=== PATIENT | female | born 2000 | race Caucasian/White ===

== ENCOUNTER 2020-09-27 13:03 | Emergency (ER) | payer OTHER ==
[2020-09-27] MEDS ORDERED: TORAdol 30 mg Injection IM ONE (13:19)
[2020-09-27 13:21] VITALS: BP 139/92; PULSE 89; O2SAT 99
[2020-09-27] MEDS ORDERED: TORAdol 30 mg Injection ONE (13:24)
--- NOTE | 2020-09-27 13:31 | ERPHSYRPT ---
- History of Present Illness Time Seen by Provider: 09/27/20 13:06 Source: patient Exam Limitations: no limitations Patient Subjective Stated Complaint: PT states "I do not know what has happend but my back really hurts." Triage Nursing Assessment: PT presented alert and oriented X3, skin pwd Pt ambulates with an uprigth limpy gait, able to speak in clear full sentences. pt grunting unable to sit comfortably." Physician History: Patient is here with back pain. Nontraumatic. No falls or other known injuries. She states that she has tried some home Tylenol. No ibuprofen or hot pack, heating pack. She has not seen her PCP. She did not attempt to call her PCP. Patient has no red flag symptoms for back pain today: No Loss of control of the bowel or bladder. No weakness or numbness in a leg or arm. No foot drop, disturbed gait. No high fever, no IV drug use. No saddle anaesthesia (numbness of the anus, perineum or genitals). No trauma or h/o cancer Timing/Duration: today Severity: mild Modifying Factors: Improves With: medication, movement Associated Symptoms: denies symptoms Allergies/Adverse Reactions: peach Allergy (Intermediate, Verified 09/27/20 13:21) Hives Home Medications: Iron,Carb/Vit C/Vit B12/Folic [Iron 100 Plus Tablet] 1 each PO DAILY 09/27/20 [History] Hx Tetanus, Diphtheria Vaccination/Date Given: No Hx Influenza Vaccination/Date Given: No Hx Pneumococcal Vaccination/Date Given: No Immunizations Up to Date: Yes Travel Risk - International Travel Have you traveled outside of the country in past 3 weeks: No - Coronavirus Screening Are you exhibiting any of the following symptoms?: No Close contact with a COVID-19 positive Pt in past 14-21 Days: No - Review of Systems Constitutional: No Fever, No Chills Eyes: No Symptoms Ears, Nose, & Throat: No Symptoms Respiratory: No Cough, No Dyspnea Cardiac: No Chest Pain, No Edema, No Syncope Abdominal/Gastrointestinal: No Abdominal Pain, No Nausea, No Vomiting, No Diarrhea Genitourinary Symptoms: No Dysuria Musculoskeletal: Back Pain, No Neck Pain Skin: No Rash Neurological: No Dizziness, No Focal Weakness, No Sensory Changes Psychological: No Symptoms Endocrine: No Symptoms All Other Systems: Reviewed and Negative - Past Medical History Pertinent Past Medical History: Yes Other Medical History: anemia - Past Surgical History Past Surgical History: No - Social History Smoking Status: Current every day smoker How long have you smoked: years Exposure to second hand smoke: Yes Drug Use: none Patient Lives Alone: No - Female History Hx Last Menstrual Period: unknown Hx Now: No - Nursing Vital Signs Nursing Vital Signs: Initial Vital Signs Temperature 97.8 F 09/27/20 13:09 Pulse Rate 89 09/27/20 13:09 Respiratory Rate 20 09/27/20 13:09 Blood Pressure 139/92 09/27/20 13:09 O2 Sat by Pulse Oximetry 99 09/27/20 13:09 Pain Scale Pain Intensity [Lower Back] 8 Pain Intensity 8 - Physical Exam General Appearance: no apparent distress, alert Eye Exam: PERRL/EOMI, eyes nml inspection Ears, Nose, Throat Exam: normal ENT inspection, TMs normal, pharynx normal, moist mucous membranes Neck Exam: normal inspection, non-tender, supple, full range of motion Respiratory Exam: normal breath sounds, lungs clear, No respiratory distress Cardiovascular Exam: regular rate/rhythm, normal heart sounds, normal peripheral pulses Gastrointestinal/Abdomen Exam: soft, normal bowel sounds, No tenderness, No mass Back Exam: normal inspection, normal range of motion, No CVA tenderness, No vertebral tenderness Extremity Exam: normal inspection, normal range of motion, pelvis stable Neurologic Exam: alert, oriented x 3, cooperative, normal mood/affect, nml cerebellar function, nml station & gait, sensation nml, No motor deficits Skin Exam: normal color, warm, dry, No rash Lymphatic Exam: No adenopathy SpO2 Interpretation: normal SpO2: 99 Comments: 09/27/20 13:30 No trismus, able to fully extend neck, normal range of motion of neck without pain. Uvula is midline, no swelling of the mouth, noraml oropharynx. No exudate, no signs of meningitis, no floor of mouth swelling, no hot potato voice on exam. No buccal swelling, no gum bleeding, no signs of tooth abscess/infection. No obvious deformity, sensation intact, 2+ capillary refill, 2 point tactile discrimination intact. 5 out of 5 strength. Full range of motion without pain. Compartments are soft, nontender. Overlying skin shows no tenting, bruising, ecchymosis. Motor: There is no pronator drift of out-stretched arms. Muscle bulk and tone are normal. Strength is full bilaterally. Reflexes: Reflexes are 2+ and symmetric at the biceps, triceps, knees, and a nkles. Plantar responses are flexor. Sensory: Light touch sense are intact in bilateral upper and lower extremities. There is no sign of neglect. Coordination: Rapid alternating movements are intact. There is no dysmetria on [id number] and [id number]. There are no abnormal or extraneous movements. Romberg is absent. Gait/Stance: Posture is normal. Gait is steady with normal steps, base, arm swing, and turning. Heel and toe walking are normal. Tandem gait is normal. - Course Nursing assessment & vital signs reviewed: Yes Ordered Tests: Active Orders 24 hr Category Date Time Status LUMBAR LIMITED (2 OR 3 VIEWS) Stat Exams 09/27/20 13:32 Completed HCG,QUALITATIVE URINE Stat Lab 09/27/20 13:19 Ordered UA W/RFX UR CULTURE Stat Lab 09/27/20 13:19 Ordered Medication Summary Discontinued Medications Generic Name Dose Route Start Last Admin Trade Name Daniel PRN Reason Stop Dose Admin Ketorolac Tromethamine 30 mg 09/27/20 13:19 09/27/20 13:26 Toradol 30 Mg Injection IM 09/27/20 13:20 Not Given STAT ONE Ketorolac Tromethamine Confirm 09/27/20 13:24 Toradol 30 Mg Injection Administered 09/27/20 13:25 Dose 30 mg .ROUTE .STK-MED ONE - Progress Progress: improved Progress Note: 09/27/20 13:31 Patient here with back pain. No red flag symptoms for back pain. Will obtain a UA, urine , IM shot of Toradol, x-ray of the low back. 09/27/20 13:55 X-ray showed no fractures. Neurological reexam remained normal. Patient declines staying to get her urine tested for or UA. Plan of care was discussed with patient and all questions answered. The patient is agreeable to be discharged home and both verbal and printed discharge instructions were provided.The patient agreed to seek outpatient follow up as discussed. The patient was given strict instructions to return to the emergency department for worsening symptoms or any other emergent concerns. The patient verbalized understanding. Counseled pt/family regarding: diagnosis, need for follow-up, rad results - Departure Departure Disposition: Home Clinical Impression: Low back pain Condition: Stable Critical Care Time: No Referrals: FERNANDO KATHLEEN [ACTIVE STAFF] - Instructions: Low Back Pain (DC)
--- NOTE | 2020-09-27 13:46 | XRAY ---
Indication: Low back pain. No known injury. Comparison: None 3 view lumbar spine demonstrates 5 lumbar segments in normal alignment with vertebral body heights/disc spaces maintained. No bony, articular, or soft tissue abnormalities.
== END 2020-09-27 13:54 | disposition home or self-care (01) ==
LOC: ED 13:03
DX: M54.5 Low back pain (principal)
CPT/HCPCS: 72100; 99284; J1885

== ENCOUNTER 2021-02-08 17:14 | Emergency (ER) | payer OTHER ==
--- NOTE | 2021-02-08 17:19 | ERPHSYRPT ---
- History of Present Illness Time Seen by Provider: 02/08/21 17:19 Source: patient Exam Limitations: no limitations Physician History: This is an obese 20-year-old white female who presents with 1 day history of sore throat mild cough and myalgias arthralgias. She has had no fever. She has had a few episodes of loose stool but no vomiting. Her significant other has somewhat similar symptoms. She has no chest pain. She has no shortness of breath. She has no abdominal pain. Timing/Duration: yesterday Severity: mild Associated Symptoms: cough, No nausea, No vomiting, No abdominal pain, No shortness of breath, No chills, No chest pain Allergies/Adverse Reactions: peach Allergy (Intermediate, Verified 02/08/21 17:28) Hives Home Medications: No Reportable Medications [No Reported Medications] 02/08/21 [History] Hx Tetanus, Diphtheria Vaccination/Date Given: No Hx Influenza Vaccination/Date Given: No Hx Pneumococcal Vaccination/Date Given: No Travel Risk - International Travel Have you traveled outside of the country in past 3 weeks: No - Coronavirus Screening Symptoms: Cough: New Onset Close contact with a COVID-19 positive Pt in past 14-21 Days: No - Vaccine Status Have you recieved a Covid-19 vaccination: No - Review of Systems Constitutional: No Symptoms Eyes: No Symptoms Ears, Nose, & Throat: No Symptoms Respiratory: Cough (Mild), No Dyspnea Cardiac: No Symptoms, No Chest Pain Abdominal/Gastrointestinal: Diarrhea (A few episodes of loose stools), No Abdominal Pain, No Nausea, No Vomiting Genitourinary Symptoms: No Symptoms Musculoskeletal: Arthralgias, Myalgias Skin: No Symptoms Neurological: No Symptoms Psychological: No Symptoms Endocrine: No Symptoms Hematologic/Lymphatic: No Symptoms Immunological/Allergic: No Symptoms All Other Systems: Reviewed and Negative - Past Medical History Pertinent Past Medical History: Yes Neurological History: No Pertinent History ENT History: No Pertinent History Cardiac History: No Pertinent History Respiratory History: No Pertinent History Endocrine Medical History: No Pertinent History Musculoskeletal History: No Pertinent History GI Medical History: No Pertinent History History: No Pertinent History Psycho-Social History: No Pertinent History Female Reproductive Disorders: No Pertinent History Other Medical History: anemia - Past Surgical History Past Surgical History: No Neuro Surgical History: No Pertinent History Cardiac: No Pertinent History Respiratory: No Pertinent History Gastrointestinal: No Pertinent History Genitourinary: No Pertinent History Musculoskeletal: No Pertinent History Female Surgical History: No Pertinent History - Social History Smoking Status: Current every day smoker How long have you smoked: years Exposure to second hand smoke: Yes Drug Use: none Patient Lives Alone: No - Nursing Vital Signs Nursing Vital Signs: Initial Vital Signs Temperature 98.2 F 02/08/21 17:29 Pulse Rate 69 02/08/21 17:29 Respiratory Rate 18 02/08/21 17:29 Blood Pressure 158/90 02/08/21 17:29 O2 Sat by Pulse Oximetry 98 02/08/21 17:29 Pain Scale Pain Intensity 5 - Physical Exam General Appearance: no apparent distress, alert, anxiety, obese Eye Exam: PERRL/EOMI, eyes nml inspection Ears, Nose, Throat Exam: normal ENT inspection, moist mucous membranes Neck Exam: normal inspection, non-tender, supple, full range of motion Respiratory Exam: normal breath sounds, lungs clear, airway intact, No chest tenderness, No respiratory distress Cardiovascular Exam: regular rate/rhythm, normal heart sounds, normal peripheral pulses Gastrointestinal/Abdomen Exam: soft, normal bowel sounds, No tenderness Pelvic Exam: not done Rectal Exam: not done Back Exam: normal inspection, normal range of motion, No CVA tenderness, No vertebral tenderness Extremity Exam: normal inspection, normal range of motion, pelvis stable Neurologic Exam: alert, oriented x 3, cooperative, floor winder II-XII nml as tested, normal mood/affect, nml cerebellar function, nml station & gait, sensation nml Skin Exam: normal color, warm, dry Lymphatic Exam: No adenopathy SpO2 Interpretation: normal O2 Delivery: Room Air - Course Nursing assessment & vital signs reviewed: Yes Ordered Tests: Active Orders 24 hr Category Date Time Status INFLUENZA A+B WESTLEY Stat Lab 02/08/21 18:01 Completed Lab/Rad Data: Laboratory Results 02/08/21 02/08/21 Range/Units 18:01 18:01 Influenza Type A Ag NEGATIVE (NEGATIVE) Influenza Type B Ag NEGATIVE (NEGATIVE) Group A Strep Antibody NOT DETECTED (NEGATIVE) - Departure Departure Disposition: Home Clinical Impression: Flu-like symptoms Condition: Stable Critical Care Time: No Referrals: DOCTOR,NO FAMILY [Primary Care Provider] - Additional Instructions: Drink plenty of fluids. Use Tylenol and ibuprofen for pain and fever control. Quarantine yourself until your COVID-19 test result return. Forms: Work/School Release Form
[2021-02-08 17:43] VITALS: O2SAT 98
[2021-02-08 18:30] LABS: INFLUENZA A NEGATIVE (NEGATIVE); INFLUENZA B NEGATIVE (NEGATIVE)
[2021-02-08 18:32] VITALS: BP 159/104; PULSE 74
== END 2021-02-08 19:08 | disposition home or self-care (01) ==
LOC: ED 17:14
DX: J11.1 Influenza due to unidentified influenza virus with other respiratory manifestations (principal)
CPT/HCPCS: 87400; 87651; 99283; U0003

== ENCOUNTER 2021-03-08 16:23 | Emergency (ER) | payer OTHER ==
[2021-03-08 16:38] VITALS: BP 151/79; PULSE 86; O2SAT 97
--- NOTE | 2021-03-08 16:42 | ERPHSYRPT ---
- History of Present Illness Time Seen by Provider: 03/08/21 16:40 Source: patient Exam Limitations: no limitations Patient Subjective Stated Complaint: pt here for pain to left hand and wrist, pt states she hurt it at work night. Triage Nursing Assessment: pt alert, resp easy, skin w/d/p. face mask in place, has swelling to left hand Physician History: pt here for pain to left hand and wrist, pt states she hurt it at work night. denies any other injury. C/o swelling of hand. Occurred: last week Method of Injury: twisted Quality: constant Severity of Pain-Max: moderate Severity of Pain-Current: moderate Extremities Pain Location: hand: left Modifying Factors: Improves With: cold therapy Associated Symptoms: none Allergies/Adverse Reactions: peach Allergy (Intermediate, Verified 03/08/21 16:38) Hives Home Medications: Iron,Carb/Vit C/Vit B12/Folic [Iron 100 Plus Tablet] 1 ea DAILY 03/08/21 [History] Hx Tetanus, Diphtheria Vaccination/Date Given: No Hx Influenza Vaccination/Date Given: No Hx Pneumococcal Vaccination/Date Given: No Immunizations Up to Date: Yes Travel Risk - International Travel Have you traveled outside of the country in past 3 weeks: No - Coronavirus Screening Are you exhibiting any of the following symptoms?: No Close contact with a COVID-19 positive Pt in past 14-21 Days: No - Vaccine Status Have you recieved a Covid-19 vaccination: No - Review of Systems Constitutional: No Symptoms Eyes: No Symptoms Ears, Nose, & Throat: No Symptoms Respiratory: No Symptoms Cardiac: No Symptoms Abdominal/Gastrointestinal: No Symptoms Genitourinary Symptoms: No Symptoms Musculoskeletal: Joint Redness, Joint Pain, Joint Swelling (left hand), No Deformity - Past Medical History Pertinent Past Medical History: Yes Neurological History: No Pertinent History ENT History: No Pertinent History Cardiac History: No Pertinent History Respiratory History: No Pertinent History Endocrine Medical History: No Pertinent History Musculoskeletal History: No Pertinent History GI Medical History: No Pertinent History History: No Pertinent History Psycho-Social History: No Pertinent History Female Reproductive Disorders: No Pertinent History Other Medical History: anemia - Past Surgical History Past Surgical History: No Neuro Surgical History: No Pertinent History Cardiac: No Pertinent History Respiratory: No Pertinent History Gastrointestinal: No Pertinent History Genitourinary: No Pertinent History Musculoskeletal: No Pertinent History Female Surgical History: No Pertinent History - Social History Smoking Status: Current every day smoker How long have you smoked: years Exposure to second hand smoke: Yes Drug Use: none Patient Lives Alone: No - Female History Hx Last Menstrual Period: january Hx Now: No - Nursing Vital Signs Nursing Vital Signs: Initial Vital Signs Temperature 97.2 F 03/08/21 16:32 Pulse Rate 86 03/08/21 16:32 Respiratory Rate 18 03/08/21 16:32 Blood Pressure 151/79 03/08/21 16:32 O2 Sat by Pulse Oximetry 97 03/08/21 16:32 Pain Scale Pain Intensity 8 - Physical Exam General Appearance: no apparent distress Eyes, Ears, Nose, Throat Exam: normal ENT inspection Neck Exam: normal inspection Back Exam: normal inspection Shoulder Exam: normal inspection Elbow/Forearm Exam: normal inspection Wrist Exam: normal inspection Hand Exam: limited ROM, soft tissue tenderness, stiffness, swelling, No deformity SpO2: 97 - Radiology Exams Hand X-ray Interpretation: Reviewed by me, Negative, No Fracture Ordered Tests: Active Orders 24 hr Category Date Time Status HAND (MINIMUM 3 VIEWS) Stat Exams 03/08/21 16:40 Ordered - Progress Progress: improved, pain not gone completely Counseled pt/family regarding: diagnosis, need for follow-up, rad results - Departure Departure Disposition: Home Clinical Impression: Contusion of hand excluding finger Condition: Stable Critical Care Time: No Referrals: DOCTOR,NO FAMILY [Primary Care Provider] - Follow Up with PCP/3 days Instructions: Active Range of Motion Exercises, Arms and Hands, Passive Range of Motion Exercises, Arms and Hands Additional Instructions: SPRAINS/STRAINS/CONTUSIONS 1. Rest the affected area as much as possible for the next few days. 2. Apply ice to the affected area for 20-30 minutes at a time, several times a day. 3. If you receive an elastic wrap, wear it only while awake for comfort and support. Re-wrap the elastic wrap if it feels too tight or too loose. 4. If swelling is present, elevate the affected part above the level of the heart for at least 2 to 3 days. 5. Use splints, slings, or crutches as instructed. 6. Watch for severe swelling, coldness, numbness, and discoloration of the fingers and toes. See your family physician or return to the emergency department if any of these are noted. Discharge/Care Plan YNES MANZO was seen on 03/08/21 in the Emergency Room. The patient was counseled regarding Diagnosis,Lab results, Imaging studies, need for follow up and when to return to the Emergency Room. Prescriptions given: Discharge Note I have spoken with the patient and/or caregivers. I have explained the patient's condition, diagnosis and treatment plan based on the information available to me at this time. I have answered the patient's and/or caregiver's questions and addressed any concerns. The patient and/or caregivers have as good understanding of the patient's diagnosis, condition and treatment plan as can be expected at this point. The vital signs have been stable. The patient's condition is stable and appropriate for discharge from the emergency department. The patient will pursue further outpatient evaluation with the primary care physician or other designated or consulting physician as outlined in the discharge instructions. The patient and/or caregivers are agreeable to this plan of care and follow-up instructions have been explained in detail. The patient an d/or caregivers have received these instruction. The patient/and or caregivers are aware that any significant change in condition or worsening of symptoms should prompt an immediate return to this or the closest emergency department or call 911. YNES MANZO was seen on 03/08/21 n the Emergency Room. At that time you were treated for an emergent condition, during your visit Laboratory, Radiology and/or other procedures may have been ordered. It is very important that you follow-up with your Primary Care Physician NO FAMILY DOCTOR within the next 24- 48 hours to review your Emergency Room visit and the final results of testing that was ordered. Some test results such as Urine Cultures, Blood Cultures, and other cultures if ordered will not be finalized for 24-48 hours. If you do not have a Primary Care Provider please call the medical records department at [phone] ext [phone] to obtain a copy of your results or you may sign into our patient portal to obtain these results by visiting us @ [email or web address] and completing the following steps: 1. Click on the Patient Portal link 2. Click the Patient Self Enrollment Link to complete the enrollment form and entering your 3. Once the enrollment form is completed you will receive an email with a temporary ID and password at the email address you provided. 4. Next choose a user name and password. Your user name must be at least 4 characters long and your password must be at least 4 characters long. 5. Choose a security question from the list and provide your answer to the question. If you already have signed into the Health Portal you may access your Health Care Information 17/05 by the following steps: 1. Login to our website @ [email or web address] 2. Enter your original user name and password. FAQS The [facility] Health Portal is an online tool that contains your Lab Results, Radiology Reports, Visit History, Discharge Instructions and Health Summary Lab and Radiology Results will not be available for 72 hours on the portal. The Portal is a secure site, passwords are encryted and URLs are re-written so they cannot be copied and pasted. You and authorized family members are the only ones who can access your Portal. Also there is a timeout feature that protects your information if you leave the Portal page open. If you have technical difficulty please use the Contact Us link on the page this will allow you to submit any questions you have regarding the Portal or you may contact the Medical Record Department at [phone].
--- NOTE | 2021-03-08 19:46 | XRAY ---
Indication: Pain following injury. Comparison: None 3 view left hand demonstrates small capitate bone island. No other bony, articular, or soft tissue abnormalities.
== END 2021-03-08 17:29 | disposition home or self-care (01) ==
LOC: ED 16:23
DX: S60.222A Contusion of left hand, initial encounter (principal); X58.XXXA Exposure to other specified factors, initial encounter; Y93.89 Activity, other specified; Y92.89 Other specified places as the place of occurrence of the external cause; Y99.0 Civilian activity done for income or pay; M79.642 Pain in left hand; M25.532 Pain in left wrist
CPT/HCPCS: 73130; 99283; L3908

== ENCOUNTER 2021-04-03 16:30 | Emergency (ER) | payer OTHER ==
[2021-04-03 16:40] VITALS: BP 143/93; O2SAT 96
[2021-04-03] MEDS ORDERED: DUONEB 0.5-3 MG/3 ml Neb IH ONE ×2 (17:25→17:31)
--- NOTE | 2021-04-03 17:30 | ERPHSYRPT ---
- History of Present Illness Time Seen by Provider: 04/03/21 16:40 Source: patient Exam Limitations: no limitations Patient Subjective Stated Complaint: Pt was at work and coughing and they sent her home and told her she needed a work slip, pt thinks that it is her allergies Triage Nursing Assessment: Pt c/o of coughing for the past couple of days, creamy green thick sputum, hypertensive, denies pain, denies fever, skin n/w/d, ricardo wheezing, doesn't appear to be in any distress Physician History: Patient is a 20-year-old female presents to our ED for evaluation of cough URI symptoms. Symptoms have been ongoing for approximately 2 days. Patient significant other has the same symptomology. Cough is productive of a clear sputum. No fever. No nausea or vomiting. No diaphoresis. No rash. Patient states she was sent to our ED from her work at [employer] due to her cough. Patient voices no other complaints or concerns at this time. Timing/Duration: day(s) (2 days ago) Cough Quality/Degree: productive cough Possible Cause: allergen exposure Modifying Factors: Improves With: nothing Associated Symptoms: denies symptoms, No dizziness, No headache, No lightheadedness, No muscle aches, No nasal drainage, No sinus infection, No sore throat Allergies/Adverse Reactions: peach Allergy (Intermediate, Verified 04/03/21 16:40) Hives Home Medications: Iron,Carb/Vit C/Vit B12/Folic [Iron 100 Plus Tablet] 1 ea DAILY 03/08/21 [Hi story] Hx Tetanus, Diphtheria Vaccination/Date Given: No Hx Influenza Vaccination/Date Given: No Hx Pneumococcal Vaccination/Date Given: No Travel Risk - International Travel Have you traveled outside of the country in past 3 weeks: No - Coronavirus Screening Are you exhibiting any of the following symptoms?: No Close contact with a COVID-19 positive Pt in past 14-21 Days: No - Vaccine Status Have you recieved a Covid-19 vaccination: No - Review of Systems Constitutional: No Symptoms, No Fever, No Chills Eyes: No Symptoms Ears, Nose, & Throat: No Symptoms Respiratory: No Symptoms, No Cough, No Dyspnea Cardiac: No Symptoms, No Chest Pain, No Edema, No Syncope Abdominal/Gastrointestinal: No Symptoms, No Abdominal Pain, No Nausea, No Vomiting, No Diarrhea Genitourinary Symptoms: No Symptoms, No Dysuria Musculoskeletal: No Symptoms, No Back Pain, No Neck Pain Skin: No Symptoms, No Rash Neurological: No Symptoms, No Dizziness, No Focal Weakness, No Sensory Changes Psychological: No Symptoms Endocrine: No Symptoms Hematologic/Lymphatic: No Symptoms Immunological/Allergic: No Symptoms All Other Systems: Reviewed and Negative - Past Medical History Pertinent Past Medical History: Yes Neurological History: No Pertinent History ENT History: No Pertinent History Cardiac History: No Pertinent History Respiratory History: No Pertinent History Endocrine Medical History: No Pertinent History Musculoskeletal History: No Pertinent History GI Medical History: No Pertinent History History: No Pertinent History Psycho-Social History: No Pertinent History Female Reproductive Disorders: No Pertinent History Other Medical History: anemia - Past Surgical History Past Surgical History: No Neuro Surgical History: No Pertinent History Cardiac: No Pertinent History Respiratory: No Pertinent History Gastrointestinal: No Pertinent History Genitourinary: No Pertinent History Musculoskeletal: No Pertinent History Female Surgical History: No Pertinent History - Social History Smoking Status: Current every day smoker How long have you smoked: years Exposure to second hand smoke: Yes Drug Use: none Patient Lives Alone: No - Female History Hx Last Menstrual Period: 04/02/2021 Hx Now: No - Nursing Vital Signs Nursing Vital Signs: Initial Vital Signs Temperature 98.0 F 04/03/21 16:32 Pulse Rate 91 H 04/03/21 16:32 Blood Pressure 143/93 04/03/21 16:32 O2 Sat by Pulse Oximetry 96 04/03/21 16:32 Pain Scale Pain Intensity 0 - Physical Exam General Appearance: no apparent distress, alert Eye Exam: PERRL/EOMI, eyes nml inspection Ears, Nose, Throat Exam: normal ENT inspection, TMs normal, pharynx normal, moist mucous membranes Neck Exam: normal inspection, non-tender, supple, full range of motion Respiratory Exam: airway intact, wheezing, No respiratory distress Cardiovascular Exam: regular rate/rhythm, normal heart sounds Gastrointestinal/Abdomen Exam: soft, No tenderness Back Exam: normal inspection, No CVA tenderness, No vertebral tenderness Extremity Exam: normal inspection, normal range of motion Neurologic Exam: alert, oriented x 3, cooperative, normal mood/affect, sensation nml, No motor deficits Skin Exam: normal color, warm, dry, No rash Lymphatic Exam: No adenopathy SpO2 Interpretation: normal SpO2: 96 O2 Delivery: Room Air - Course Nursing assessment & vital signs reviewed: Yes Ordered Tests: Active Orders 24 hr Category Date Time Status CULTURE,URINE Stat Lab 04/03/21 17:30 Received HCG,QUALITATIVE URINE Stat Lab 04/03/21 17:30 Completed UA W/RFX UR CULTURE Stat Lab 04/03/21 17:30 Completed Respiratory Therapy Assessment DAILY RT 04/03/21 17:36 Completed Medication Summary Discontinued Medications Generic Name Dose Route Start Last Admin Trade Name Freq PRN Reason Stop Dose Admin Albuterol/Ipratropium 3 ml 04/03/21 17:25 04/03/21 17:36 Duoneb 0.5-3 Mg/3 Ml Neb IH 04/03/21 17:26 3 ml STAT ONE Administration Albuterol/Ipratropium Confirm 04/03/21 17:31 Duoneb 0.5-3 Mg/3 Ml Neb Administered 04/03/21 17:32 Dose 3 ml IH .STK-MED ONE Lab/Rad Data: Laboratory Results 04/03/21 04/03/21 Range/Units 17:30 17:30 Urine Color YELLOW (YELLOW) Urine Appearance SLIGHTLY CLOUDY (CLEAR) Urine pH 5.0 (5-6) Ur Specific [place] 1.025 (1.005-1.025) Urine Protein 30 (Negative) Urine Ketones NEGATIVE (NEGATIVE) Urine Blood MODERATE (0-5) Kj/ul Urine Nitrite NEGATIVE (NEGATIVE) Urine Bilirubin NEGATIVE (NEGATIVE) Urine Urobilinogen NEGATIVE (0-1) mg/dL Ur Leukocyte Esterase NEGATIVE (NEGATIVE) Urine WBC (Auto) NONE (0-5) /HPF Urine RBC (Auto) 26-50 (0-2) /HPF U Hyaline Cast (Auto) 0-2 (0-2) /LPF U Epithel Cells (Auto) NONE (FEW) /HPF Urine Bacteria (Auto) NONE (NEGATIVE) /HPF Urine Mucus (Auto) MANY (NEGATIVE) /HPF Urine Culture Reflexed YES (NO) Urine Glucose NEGATIVE (NEGATIVE) mg/dL Urine HCG, Qual NEGATIVE (Negative) - Progress Progress: improved Air Movement: good Progress Note: Patient received a DuoNeb treatment in our ED. She also received a dose of prednisone. UA negative for UTI. There is some blood in the urinalysis however she is currently on her menstrual period. We discussed the concern for possible Covid. Patient declined Covid testing. Patient states that if she is positive she will need to be quarantined from work and she cannot afford loss of pay. I highly advised patient not to work while she is having symptoms. We will discharge at this time. Patient agrees to follow-up with her primary care doctor within 48 hours for reevaluation. Will discharge home at this time. 04/03/21 18:08 Blood Culture(s) Obtained: No Antibiotics given: No Counseled pt/family regarding: diagnosis, need for follow-up - Departure Departure Disposition: Home Clinical Impression: Cough, Bronchitis Condition: Stable Critical Care Time: No Referrals: DOCTOR,NO FAMILY [Primary Care Provider] - [facility] BORDEN [ACTIVE STAFF] - Additional Instructions: Please drink plenty of fluids. Stay hydrated. Covid has not been ruled out. Advise you may return to work once cleared to do so by your family doctor. Discharge/Care Plan YNES MANZO was seen on 04/03/21 in the Emergency Room. The patient was counseled regarding Diagnosis,Lab results, Imaging studies, need for follow up and when to return to the Emergency Room. Prescriptions given: Discharge Note I have spoken with the patient and/or caregivers. I have explained the patient's condition, diagnosis and treatment plan based on the information available to me at this time. I have answered the patient's and/or caregiver's questions and addressed any concerns. The patient and/or caregivers have as good understanding of the patient's diagnosis, condition and treatment plan as can be expected at this point. The vital signs have been stable. The patient's condition is stable and appropriate for discharge from the emergency department. The patient will pursue further outpatient evaluation with the primary care physician or other designated or consulting physician as outlined in the discharge instructions. The patient and/or caregivers are agreeable to this plan of care and follow-up instructions have been explained in detail. The patient and/or caregivers have received these instruction. The patient/and or caregivers are aware that any significant change in condition or worsening of symptoms should prompt an immediate return to this or the closest emergency department or call 911. Prescriptions: Prednisone 10 mg [Deltasone 10 mg] 40 mg PO DAILY 3 Days #12 tablet Albuterol 8 gm Mdi Hfa [Ventolin Hfa MDI] 8 gm IH Q4H #1 [email or web address]
[2021-04-03 17:37] VITALS: PULSE 88
[2021-04-03 17:56] LABS: Appearance SLIGHTLY CLOUDY (CLEAR); Bilirubin NEGATIVE (NEGATIVE); Blood MODERATE Ery/ul (0-5); Glucose NEGATIVE (NEGATIVE); Hyaline Casts 0-2 /LPF (0-2); Ketones NEGATIVE (NEGATIVE); Leukocyte Esterase NEGATIVE (NEGATIVE); Mucus MANY /HPF (NEGATIVE); Nitrite NEGATIVE (NEGATIVE); Protein,Urine Dip 30 (Negative); RBC 26-50 /HPF (0-2); Specific Gravity 1.025 (1.005-1.025); Urobilinogen NEGATIVE mg/dL (0-1)
[2021-04-03] MEDS ORDERED: DELTASONE 20 MG PO ONE (18:01)
[2021-04-03] MEDS ORDERED: DELTASONE 20 MG ONE (18:04)
== END 2021-04-03 18:17 | disposition home or self-care (01) ==
LOC: ED 16:30
DX: J40 Bronchitis, not specified as acute or chronic (principal)
CPT/HCPCS: 81001; 84703; 87086; 94640; 99283; A9270-GY

== ENCOUNTER 2021-08-20 11:05 | Emergency (ER) | payer OTHER ==
--- NOTE | 2021-08-20 11:34 | ERPHSYRPT ---
- History of Present Illness Time Seen by Provider: 08/20/21 11:20 Source: patient Exam Limitations: no limitations Patient Subjective Stated Complaint: Pt states "My employer told me to get checked out before I can come back to work." Triage Nursing Assessment: Pt presented alert and oriented X 3, skin pwd Pt ambulates with an upright steady gait, able to speak in clear full sentences. Pt in no apparent respiratory distress. Physician History: This is an obese 20-year-old white female who presents with 2-day history of cough, sore throat and nasal/sinus congestion. There have been a few people at work with similar symptoms. Patient was told by her employer that she needed to be evaluated before she could return to work. Patient has not had a fever. She has had no nausea vomiting or diarrhea. She has not been around anybody that she is aware of that had COVID-19 infection. However there have been individuals that she has been around that have been ill. Timing/Duration: yesterday Cough Quality/Degree: mild, dry cough Possible Cause: occasional episodes Modifying Factors: Improves With: coughing Associated Symptoms: cough, nasal congestion, No fever, No chills, No chest pain/soreness, No shortness of breath Allergies/Adverse Reactions: peach Allergy (Intermediate, Verified 04/03/21 16:40) Hives Home Medications: Iron,Carb/Vit C/Vit B12/Folic [Iron 100 Plus Tablet] 1 ea DAILY 03/08/21 [History] Hx Tetanus, Diphtheria Vaccination/Date Given: No Hx Influenza Vaccination/Date Given: No Hx Pneumococcal Vaccination/Date Given: No Immunizations Up to Date: Yes Travel Risk - International Travel Have you traveled outside of the country in past 3 weeks: No - Coronavirus Screening Are you exhibiting any of the following symptoms?: Yes Symptoms: Cough: New Onset Close contact with a COVID-19 positive Pt in past 14-21 Days: No - Vaccine Status Have you recieved a Covid-19 vaccination: No - Review of Systems Constitutional: No Symptoms Eyes: No Symptoms Ears, Nose, & Throat: Nose Congestion, Throat Pain Respiratory: Cough, No Dyspnea Cardiac: No Symptoms, No Chest Pain Abdominal/Gastrointestinal: No Symptoms Genitourinary Symptoms: No Symptoms Musculoskeletal: No Symptoms Skin: No Symptoms Neurological: No Symptoms Psychological: No Symptoms Endocrine: No Symptoms Hematologic/Lymphatic: No Symptoms Immunological/Allergic: No Symptoms All Other Systems: Reviewed and Negative - Past Medical History Pertinent Past Medical History: Yes Neurological History: No Pertinent History ENT History: No Pertinent History Cardiac History: No Pertinent History Respiratory History: No Pertinent History Endocrine Medical History: No Pertinent History Musculoskeletal History: No Pertinent History GI Medical History: No Pertinent History History: No Pertinent History Psycho-Social History: No Pertinent History Female Reproductive Disorders: No Pertinent History Other Medical History: anemia - Past Surgical History Past Surgical History: No Neuro Surgical History: No Pertinent History Cardiac: No Pertinent History Respiratory: No Pertinent History Gastrointestinal: No Pertinent History Genitourinary: No Pertinent History Musculoskeletal: No Pertinent History Female Surgical History: No Pertinent History - Social History Smoking Status: Current every day smoker How long have you smoked: years Exposure to second hand smoke: Yes Drug Use: marijuana Patient Lives Alone: No - Female History Hx Last Menstrual Period: unknown Hx Now: No - Nursing Vital Signs Nursing Vital Signs: Initial Vital Signs Temperature 97.8 F 08/20/21 11:10 Pulse Rate 90 08/20/21 11:10 Respiratory Rate 20 08/20/21 11:10 Blood Pressure 176/92 08/20/21 11:10 O2 Sat by Pulse Oximetry 97 08/20/21 11:10 Pain Scale Pain Intensity 0 - Physical Exam General Appearance: no apparent distress, alert, anxiety, obese Eye Exam: PERRL/EOMI, eyes nml inspection Ears, Nose, Throat Exam: normal ENT inspection, moist mucous membranes, pharyngeal erythema Neck Exam: normal inspection, non-tender, supple, full range of motion Respiratory Exam: normal breath sounds, lungs clear, airway intact, No chest tenderness, No respiratory distress Cardiovascular Exam: regular rate/rhythm, normal heart sounds, normal peripheral pulses Gastrointestinal/Abdomen Exam: soft, normal bowel sounds, No tenderness Pelvic Exam: not done Rectal Exam: not done Back Exam: normal inspection, normal range of motion, CVA tenderness Extremity Exam: normal inspection, normal range of motion, pelvis stable Neurologic Exam: alert, oriented x 3, cooperative, valver II-XII nml as tested, normal mood/affect, nml cerebellar function, nml station & gait, sensation nml Skin Exam: normal color, warm, dry Lymphatic Exam: No adenopathy SpO2 Interpretation: normal SpO2: 97 O2 Delivery: Room Air Ordered Tests: Active Orders 24 hr Category Date Time Status INFLUENZA A+B WESTLEY Stat Lab 08/20/21 11:45 Completed Lab/Rad Data: Laboratory Results 08/20/21 08/20/21 Range/Units 11:45 11:45 Influenza Type A Ag NEGATIVE (NEGATIVE) Influenza Type B Ag NEGATIVE (NEGATIVE) Group A Strep Antibody NOT DETECTED (NEGATIVE) - Progress Progress: unchanged Air Movement: good Blood Culture(s) Obtained: No Antibiotics given: No Counseled pt/family regarding: lab results, diagnosis, need for follow-up - Departure Departure Disposition: Home Clinical Impression: Cough, Pharyngitis Condition: Stable Critical Care Time: No Referrals: RUSSELL FERNÁNDEZ MD [Primary Care Provider] - Additional Instructions: Take medication as prescribed. Quarantine yourself until the results of your COVID-19 test returned. Forms: Work/School Release Form Prescriptions: Hydrocodone/Acetaminophen [Hydrocodone-Acetamn 7.5-325/15] 10 ml PO Q8H PRN PRN #120 ml MDD 30 ml PRN Reason: Cough Prednisone 10 mg [Deltasone 10 mg] 10 mg PO TID #12 tablet
[2021-08-20 12:20] VITALS: BP 170/88; PULSE 79
[2021-08-20 12:47] LABS: INFLUENZA A NEGATIVE (NEGATIVE); INFLUENZA B NEGATIVE (NEGATIVE)
[2021-08-20 12:51] VITALS: O2SAT 97
== END 2021-08-20 13:14 | disposition home or self-care (01) ==
LOC: ED 11:05
DX: R05.9 Cough, unspecified (principal); J02.9 Acute pharyngitis, unspecified
CPT/HCPCS: 87400; 87651; 99283; U0003

== ENCOUNTER 2021-11-19 01:47 | Emergency (ER) | payer OTHER ==
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
[2021-11-19] MEDS ORDERED: ZOFRAN ODT 4 MG ONE (02:11)
[2021-11-19] MEDS: ZOFRAN ODT 4 MG PO ONE (02:12)
[2021-11-19 02:31] LABS: Appearance CLOUDY (CLEAR); Bilirubin NEGATIVE (NEGATIVE); Blood NEGATIVE Ery/ul (0-5); Epithelial Cells RARE /HPF (FEW); Glucose NEGATIVE (NEGATIVE); Ketones NEGATIVE (NEGATIVE); Leukocyte Esterase NEGATIVE (NEGATIVE); Mucus SLIGHT /HPF (NEGATIVE); Nitrite NEGATIVE (NEGATIVE); Protein,Urine Dip 30 (Negative); RBC 0-2 /HPF (0-2); Specific Gravity 1.024 (1.005-1.025); Urobilinogen 4 mg/dL (0-1)
[2021-11-19 02:37] LABS: Bacteria NONE SEEN /HPF (NEGATIVE)
[2021-11-19 02:41] LABS: HCG,QUALITATIVE URINE NEGATIVE (Negative); INFLUENZA A NEGATIVE (NEGATIVE); INFLUENZA B NEGATIVE (NEGATIVE)
[2021-11-19 02:42] LABS: COVID AG -BINAX NOW RAPID TEST POSITIVE (NEGATIVE)
[2021-11-19 02:50] VITALS: BP 153/105; PULSE 72; O2SAT 95
== END 2021-11-19 02:54 | disposition home or self-care (01) ==
LOC: ED 01:47
DX: U07.1 COVID-19 (principal); R11.2 Nausea with vomiting, unspecified; R19.7 Diarrhea, unspecified; Z72.0 Tobacco use
CPT/HCPCS: 81001; 84703; 87400; 87651; 99000; 99284; Q0162

== ENCOUNTER 2022-02-01 11:07 | Emergency (ER) | payer OTHER ==
[2022-02-01] MEDS ORDERED: PIPERACILLIN/TAZOBACTAM 3.375 GM in Sodium Chloride 100ML MINI-BAG PLUS 100 ML IV ONE (11:58)
[2022-02-01] MEDS ORDERED: VANCOMYCIN 2 GRAM/400 ML BAG 2 GM/400 ML PIGGYBACK IV SCH (12:00)
[2022-02-01] MEDS ORDERED: PIPERACILLIN/TAZOBACTAM IV ONE (12:02)
[2022-02-01] MEDS ORDERED: VANCOMYCIN 2 GRAM/400 ML BAG 2 GM/400 ML PIGGYBACK IV ONE (12:02)
[2022-02-01] MEDS ORDERED: Sodium Chloride 100ML MINI-BAG PLUS 100 ML IV ONE (12:03)
[2022-02-01 12:06] LABS: Absolute Neutrophil Ct (ANC) 6.61 (1.4-6.9); Basophil (Absolute #) 0.05 (0-0.4); Eosinophil (Absolute #) 0.21 (0-0.5); Hematocrit 39.2 % (35-47); Hemoglobin 12.4 gm/dl (12.0-16.0); Lymphocyte (Absolute #) 2.61 (1.0-4.6); Lymphocytes % 25.4 % (24.0-44.0); Mean Cell Volume 78.6 fl (78-100); Mean Corpuscular Hemoglobin 24.8 pg (26-32); Mean Corpuscular Hgb Concent. 31.6 g/dl (32-36); Monocytes % 7.8 % (0.0-12.0); Neutrophil % 64.3 % (36.0-66.0); Platelet Count 351 K/mm3 (150-450); Red Blood Count 4.99 M/mm3 (4.1-5.4); White Blood Count 10.3 K/mm3 (4.0-10.5)
[2022-02-01 12:18] LABS: ALBUMIN 3.8 g/dL (3.5-5.0); ALKALINE PHOSPHATASE 61 U/L (38-126); ANION GAP 15.1 MEQ/L (5-15); BLOOD UREA NITROGEN 5 mg/dL (7-17); CHLORIDE 104 mmol/L (98-107); Calcium 9.2 mg/dL (8.4-10.2); Carbon Dioxide 26 mmol/L (22-30); Creatinine 1 0.47 mg/dL (0.52-1.04); EST GLOMERULAR FILTRATION RATE > 60.0 ML/MIN; Glucose 133 mg/dL (74-106); Potassium 4.5 mmol/L (3.5-5.1); SGOT/AST 24 U/L (14-36); SGPT/ALT 15 U/L (0-35); SODIUM 140 mmol/L (137-145); Total Protein 7.2 g/dL (6.3-8.2)
[2022-02-01 13:35] VITALS: BP 140/84
[2022-02-01 14:20] VITALS: PULSE 80; O2SAT 98
--- NOTE | 2022-02-01 14:59 | ERPHSYRPT ---
- History of Present Illness Time Seen by Provider: 02/01/22 11:11 Source: patient Exam Limitations: no limitations Patient Subjective Stated Complaint: Pt states "I first had a spot two weeks ago and it swelled up the size of a baseball and then it popped like a volcano, stinky nasty stuff came out and now the skin is getting black and it looks bad." Triage Nursing Assessment: Pt presented alert and oriented X 3, skin pwd Pt ambualtes with an upright steady gait, able to speak in clear full sentences pt has open abscess under left breast. 11 cm redness wide x 1.5cm. opening 3 cm x 1, 2nd opening 1.5 x 0.5. 1 cm deep, first hole is 4 cm deep with tunneling, Physician History: 20-year-old morbidly obese presented in the ER with chief complaint of left upper quadrant pain with yellow-green discharge for the last 3 to 4 days. Patient reports she noticed small pimples almost week and a half ago which started to increase in size to the point of a golf ball and busted open with discharge of pus. Now pus discharge has decreased but it is turning black on the top and causing sharp pain with palpation. No fever or chills reported. No history of MRSA Timing/Duration: week(s) (1.5), constant, gradual onset, worse Quality: painful Severity: moderate Location: torso Possible Causes: no cause identified Associated Symptoms: swelling/mass/lumps Allergies/Adverse Reactions: peach Allergy (Intermediate, Verified 11/19/21 01:57) Hives lavender (Lavandula angustifolia) Allergy (Verified 11/19/21 01:57) Itching Hx Tetanus, Diphtheria Vaccination/Date Given: No Hx Influenza Vaccination/Date Given: No Hx Pneumococcal Vaccination/Date Given: No Immunizations Up to Date: Yes Travel Risk - International Travel Have you traveled outside of the country in past 3 weeks: No - Coronavirus Screening Are you exhibiting any of the following symptoms?: No Close contact with a COVID-19 positive Pt in past 14-21 Days: No - Vaccine Status Have you recieved a Covid-19 vaccination: No - Review of Systems Constitutional: No Symptoms Eyes: No Symptoms Ears, Nose, & Throat: No Symptoms Respiratory: No Symptoms Cardiac: No Symptoms Abdominal/Gastrointestinal: Abdominal Pain Genitourinary Symptoms: No Symptoms Musculoskeletal: No Symptoms Skin: Skin Lesions Neurological: No Symptoms Endocrine: No Symptoms Hematologic/Lymphatic: No Symptoms Immunological/Allergic: No Symptoms - Past Medical History Pertinent Past Medical History: Yes Neurological History: No Pertinent History ENT History: No Pertinent History Cardiac History: No Pertinent History Respiratory History: No Pertinent History Endocrine Medical History: No Pertinent History Musculoskeletal History: No Pertinent History GI Medical History: No Pertinent History History: No Pertinent History Psycho-Social History: No Pertinent History Female Reproductive Disorders: No Pertinent History Other Medical History: anemia - Past Surgical History Past Surgical History: No Neuro Surgical History: No Pertinent History Cardiac: No Pertinent History Respiratory: No Pertinent History Gastrointestinal: No Pertinent History Genitourinary: No Pertinent History Musculoskeletal: No Pertinent History Female Surgical History: No Pertinent History - Social History Smoking Status: Current every day smoker How long have you smoked: years Exposure to second hand smoke: Yes Drug Use: marijuana Patient Lives Alone: No - Female History Hx Last Menstrual Period: 01/01/2022 Hx Now: No - Nursing Vital Signs Nursing Vital Signs: Initial Vital Signs Temperature 98.2 F 02/01/22 11:14 Pulse Rate 102 H 02/01/22 11:14 Respiratory Rate 22 02/01/22 11:14 Blood Pressure 141/102 02/01/22 11:14 O2 Sat by Pulse Oximetry 97 02/01/22 11:14 Pain Scale Pain Intensity 0 - Physical Exam General Appearance: no apparent distress, alert Eye Exam: PERRL/EOMI, eyes nml inspection Ears, Nose, Throat Exam: normal ENT inspection, TMs normal, pharynx normal, moist mucous membranes Neck Exam: normal inspection, non-tender, supple, full range of motion Respiratory Exam: normal breath sounds, lungs clear Cardiovascular Exam: regular rate/rhythm, normal heart sounds Gastrointestinal/Abdomen Exam: soft, normal bowel sounds, other (Anterior abdominal wall left upper quadrant 11 x 1.5 cm area of induration with 2 separate opening with terminal connection in between. Increased temperature in the area of induration with tenderness. Minimal discharge. Will provide blackening on the medial aspect.), No tenderness Back Exam: normal inspection Extremity Exam: normal inspection Neurologic Exam: alert, oriented x 3, cooperative Skin Exam: normal color SpO2 Interpretation: normal SpO2: 98 O2 Delivery: Room Air Ordered Tests: Active Orders 24 hr Category Date Time Status ABDOMEN AND PELVIS W CONTRAST [CT] Stat Exams 02/01/22 11:52 Taken BLOOD CULTURE Stat Lab 02/01/22 11:59 Received CBC W DIFF Stat Lab 02/01/22 11:59 Completed CMP Stat Lab 02/01/22 11:59 Completed CULTURE,WOUND Stat Lab 02/01/22 11:57 Received HCG QUALITATIVE,SERUM Stat Lab 02/01/22 12:17 Completed Medication Summary Generic Name Dose Route Start Last Admin Trade Name Freq PRN Reason Stop Dose Admin Vancomycin HCl 2 gm in 400 mls @ 133 mls/hr 02/01/22 12:00 02/01/22 12:50 Vancomycin 2 Gram/400 Ml Bag IV 03/03/22 11:59 133 mls/hr Q24H ALICJA 133 mls/hr Administration Discontinued Medications Generic Name Dose Route Start Last Admin Trade Name Freq PRN Reason Stop Dose Admin Piperacillin Sod/Tazobactam 100 mls @ 200 mls/hr 02/01/22 11:58 02/01/22 12:03 Sod 3.375 gm/ Sodium Chloride IV 02/01/22 12:27 200 mls/hr STAT ONE Administration Sodium Chloride Confirm 02/01/22 12:03 Sodium Chloride 100ml Mini-Bag Plus Administered 02/01/22 12:04 Dose 100 mls @ ud IV .STK-MED ONE Piperacillin Sod/Tazobactam Sod Confirm 02/01/22 12:02 Piperacillin/Tazobactam Sodium 3.375 Gm Vial Administered 02/01/22 12:03 Dose 3.375 gm IV .STK-MED ONE Lab/Rad Data: Laboratory Result Diagrams 02/01/22 11:59 02/01/22 11:59 Laboratory Results 02/01/22 02/01/22 02/01/22 Range/Units 12:17 11:59 11:59 WBC 10.3 (4.0-10.5) K/mm3 RBC 4.99 (4.1-5.4) M/mm3 Hgb 12.4 (12.0-16.0) gm/dl Hct 39.2 (35-47) % MCV 78.6 (78-100) fl MCH 24.8 L (26-32) pg MCHC 31.6 L (32-36) g/dl RDW 16.0 H (11.5-14.0) % Plt Count 351 (150-450) K/mm3 MPV 9.0 (7.5-11.0) fl Gran % 64.3 (36.0-66.0) % Eos # (Auto) 0.21 (0-0.5) Absolute Lymphs (auto) 2.61 (1.0-4.6) Absolute Monos (auto) 0.80 (0.0-1.3) Lymphocytes % 25.4 (24.0-44.0) % Monocytes % 7.8 (0.0-12.0) % Eosinophils % 2.0 (0.00-5.0) % Basophils % 0.5 (0.0-0.4) % Absolute Granulocytes 6.61 (1.4-6.9) Basophils # 0.05 (0-0.4) Sodium 140 (137-145) mmol/L Potassium 4.5 (3.5-5.1) mmol/L Chloride 104 (98-107) mmol/L Carbon Dioxide 26 (22-30) mmol/L Anion Gap 15.1 H (5-15) MEQ/L BUN 5 L (7-17) mg/dL Creatinine 0.47 L (0.52-1.04) mg/dL Estimated GFR > 60.0 ML/MIN Glucose 133 H (74-106) mg/dL Calcium 9.2 (8.4-10.2) mg/dL Total Bilirubin 0.80 (0.2-1.3) mg/dL AST 24 (14-36) U/L ALT 15 (0-35) U/L Alkaline Phosphatase 61 (38-126) U/L Serum Total Protein 7.2 (6.3-8.2) g/dL Albumin 3.8 (3.5-5.0) g/dL Serum , Qual NEGATIVE (Negative) - Progress Progress: unchanged Progress Note: 02/01/22 14:58 She is given Zosyn and vancomycin. Has normal white count, grossly unremarkable chemistries. CT did not show any collection of pus in abdominal wall. Discussed with Dr. Fernández, recommended discharge with outpatient follow-up and he will arrange for IV antibiotics. Recommended started on clindamycin and Levaquin and will change per culture reports. Plan discussed with patient and family who understand and agree with it. We will also refer her to wound care. Discussed with : Alayna Counseled pt/family regarding: lab results, diagnosis, need for follow-up, rad results - Departure Departure Disposition: Home Clinical Impression: Abdominal wall abscess Condition: Stable Critical Care Time: No Referrals: RUSSELL FERNÁNDEZ MD [Primary Care Provider] - Follow up/PCP as directed (Shorty gonzalez for reevaluation) Instructions: MRSA (DC), Wound Infection Additional Instructions: Dressing changes 2-3 times. Tylenol/ibuprofen as needed. Continue with antibiotics. Follow-up with your primary care for reevaluation. Return to ER for increasing discharge, swelling, fever chills etc. Prescriptions: Ibuprofen 600 mg PO Q6HPRN PRN 10 Days #20 tablet PRN Reason: Pain clindamycin HCL [Clindamycin HCl] 300 mg PO QID 10 Days #10 cap Levofloxacin [Levaquin 500 MG Tablet] 500 mg PO DAILY #10 tablet
--- NOTE | 2022-02-01 22:17 | XRAY ---
Indication: Left upper quadrant abscess. Multiple contiguous axial images obtained through the abdomen and pelvis using 80 cc Isovue 370 contrast. Comparison: None Lung bases demonstrates indeterminate 3 mm and 5 mm right lower lobe peripheral noncalcified nodules. No infiltrate or effusion. Heart not enlarged. Visualized left lower chest wall demonstrates cutaneous/subcutaneous soft tissue defect with induration presumed inflammatory/infectious. No although fluid collection or subcutaneous emphysema. Noncontrasted stomach and bowel loops appear nonobstructed with normal appendix. No free fluid/air. 21.5 cm fatty hepatomegaly. 15.4 cm splenomegaly. Remaining liver, gallbladder, pancreas, spleen, adrenal glands, kidneys, ureters, bladder, uterus, and aorta are unremarkable. No pathologic retroperitoneal lymphadenopathy. Osseous structures intact. No ventral/inguinal hernias. Impression: 1. Left lower chest wall cutaneous/subcutaneous soft tissue defect with induration presumed inflammatory/infectious. No walled off fluid collection/abscess. 2. Fatty hepatomegaly and splenomegaly. 3. Right lower lobe indeterminate noncalcified micronodules. Comparison studies recommended. 4. Remaining CT abdomen/pelvis with contrast exam is negative. Comment: Preliminary interpretation made by C. No critical discrepancy.
== END 2022-02-01 15:50 | disposition home or self-care (01) ==
LOC: ED 11:07
DX: L02.211 Cutaneous abscess of abdominal wall (principal); Z72.0 Tobacco use
CPT/HCPCS: 36000; 36415; 74177; 80053; 81025; 85025; 87040; 87070; 96374; 99284; J3370

== ENCOUNTER 2023-07-31 09:23 | Emergency (ER) | payer OTHER ==
[2023-07-31] MEDS ORDERED: Zofran 4 MG/2 ML VIAL IV ONE (09:54)
[2023-07-31] MEDS ORDERED: Sodium Chloride 0.9% 1000 ML 1,000 ML IV STA (09:54)
[2023-07-31 09:56] VITALS: RESP 19; TEMP 98; O2SAT 97
--- NOTE | 2023-07-31 10:07 | ERPHSYRPT ---
- History of Present Illness Time Seen by Provider: 07/31/23 10:04 Source: patient Exam Limitations: no limitations Patient Subjective Stated Complaint: C/O vomiting that started this morning. Patient denies any abdominal pain. She does c/o lower left rib pain; states it i s from a fall at home yesterday. Denies any changes in stool habits. Triage Nursing Assessment: Patient ambulated back to ER without difficulties. No SOB. No cough. She is alert and oriented. Abdomen is soft, bowel sounds present, no pain with palpation to abdomen. Area of pain to left lower ribs is tender to touch; no bruising noted at this time. Good skin turgor. Physician History: C/O vomiting that started this morning. Patient denies any abdominal pain. She does c/o lower left rib pain; states it is from a fall at home yesterday. Denies any changes in stool habits. Timing/Duration: today Severity: mild Associated Symptoms: vomiting Allergies/Adverse Reactions: peach Allergy (Intermediate, Verified 07/31/23 09:47) Hives lavender (Lavandula angustifolia) Allergy (Verified 07/31/23 09:47) Itching Home Medications: Ferrous Sulfate [Iron] 1 tab PO DAILY 07/31/23 [History] Hx Tetanus, Diphtheria Vaccination/Date Given: Yes Hx Influenza Vaccination/Date Given: No Hx Pneumococcal Vaccination/Date Given: No Immunizations Up to Date: Yes Travel Risk - International Travel Have you traveled outside of the country in past 3 weeks: No - Coronavirus Screening Are you exhibiting any of the following symptoms?: No Close contact with a COVID-19 positive Pt in past 14-21 Days: No - Vaccine Status Have you recieved a Covid-19 vaccination: No - Review of Systems Constitutional: No Fever, No Chills Eyes: No Symptoms Ears, Nose, & Throat: No Symptoms Respiratory: No Cough, No Dyspnea Cardiac: Other (left lower chest wall pain), No Chest Pain, No Edema, No Syncope Abdominal/Gastrointestinal: Vomiting, No Abdominal Pain, No Nausea, No Diarrhea Genitourinary Symptoms: No Dysuria Musculoskeletal: No Back Pain, No Neck Pain Skin: No Rash Neurological: No Dizziness, No Focal Weakness, No Sensory Changes Psychological: No Symptoms Endocrine: No Symptoms All Other Systems: Reviewed and Negative - Past Medical History Pertinent Past Medical History: Yes Neurological History: No Pertinent History ENT History: No Pertinent History Cardiac History: No Pertinent History Respiratory History: No Pertinent History Endocrine Medical History: No Pertinent History Musculoskeletal History: No Pertinent History GI Medical History: No Pertinent History History: No Pertinent History Psycho-Social History: No Pertinent History Female Reproductive Disorders: No Pertinent History Other Medical History: anemia - Past Surgical History Past Surgical History: No Neuro Surgical History: No Pertinent History Cardiac: No Pertinent History Respiratory: No Pertinent History Gastrointestinal: No Pertinent History Genitourinary: No Pertinent History Musculoskeletal: No Pertinent History Female Surgical History: No Pertinent History - Social History Smoking Status: Current every day smoker How long have you smoked: 6 years Exposure to second hand smoke: No Drug Use: marijuana Patient Lives Alone: No - Female History Hx Last Menstrual Period: One week ago Hx Now: No - Nursing Vital Signs Nursing Vital Signs: Initial Vital Signs Blood Pressure 149/97 07/31/23 09:47 O2 Sat by Pulse Oximetry 97 07/31/23 09:47 Pain Scale Pain Intensity 0 - Physical Exam General Appearance: no apparent distress, alert Eye Exam: PERRL/EOMI, eyes nml inspection Ears, Nose, Throat Exam: normal ENT inspection, TMs normal, pharynx normal, moist mucous membranes Neck Exam: normal inspection, non-tender, supple, full range of motion Respiratory Exam: normal breath sounds, lungs clear, No respiratory distress Cardiovascular Exam: regular rate/rhythm, normal heart sounds, normal peripheral pulses Gastrointestinal/Abdomen Exam: soft, normal bowel sounds, No tenderness, No mass Back Exam: normal inspection, normal range of motion, No CVA tenderness, No vertebral tenderness Extremity Exam: normal inspection, normal range of motion, pelvis stable Neurologic Exam: alert, oriented x 3, cooperative, normal mood/affect, nml cerebellar function, nml station & gait, sensation nml, No motor deficits Skin Exam: normal color, warm, dry, No rash Lymphatic Exam: No adenopathy SpO2: 97 - Course Nursing assessment & vital signs reviewed: Yes - Radiology Exams Chest X-ray Interpretation: Reviewed by me, Negative Abdomen X-ray Interpretation: Reviewed by me, Negative Ordered Tests: Active Orders 24 hr Category Date Time Status CHEST 2 VIEWS (PA AND LAT) Stat Exams 07/31/23 09:54 Taken KUB Stat Exams 07/31/23 09:54 Taken HCG QUALITATIVE, URINE Stat Lab 07/31/23 10:17 Completed UA W/RFX UR CULTURE Stat Lab 07/31/23 09:54 Ordered Medication Summary Discontinued Medications Generic Name Dose Route Start Last Admin Trade Name Daniel PRN Reason Stop Dose Admin Sodium Chloride 1,000 mls @ 999 mls/hr 07/31/23 09:54 07/31/23 10:05 Sodium Chloride 0.9% 1000 Ml IV 07/31/23 10:54 Not Given .Q1H1M STA Ondansetron HCl 4 mg 07/31/23 09:54 07/31/23 10:05 Ondansetron Hcl 4 Mg/2 Ml Vial IV 07/31/23 09:55 Not Given STAT ONE Patient refused for any blood draw. Lab/Rad Data: Laboratory Results 07/31/23 Range/Units 10:17 Urine HCG, Qual NEGATIVE (NEGATIVE) - Progress Progress: improved Counseled pt/family regarding: diagnosis, need for follow-up, rad results Medical Desision Making - Diagnostic Testing Diagnostic test were ordered, analyzed, and reviewed by me: Yes Radiological Interpretation: Interpreted by me, Reviewed by me - Risk of complications Minimal Risk: Minimal risk of morbidity - Departure Departure Disposition: Home Clinical Impression: Swelling abdomen Rib contusion Qualifiers: Encounter type: initial encounter Laterality: left Qualified Code(s): S20.212A - Contusion of left front wall of thorax, initial encounter Condition: Stable Critical Care Time: No Referrals: RUSSELL FERNÁNDEZ MD [Primary Care Provider] - Follow up/PCP as directed Additional Instructions: Discharge/Care Plan YNES MANZO was seen on 07/31/23 in the Emergency Room. The patient was counseled regarding Diagnosis,Lab results, Imaging studies, need for follow up and when to return to the Emergency Room. Prescriptions given: Discharge Note I have spoken with the patient and/or caregivers. I have explained the patient's condition, diagnosis and treatment plan based on the information available to me at this time. I have answered the patient's and/or caregiver's questions and addressed any concerns. The patient and/or caregivers have as good understanding of the patient's diagnosis, condition and treatment plan as can be expected at this point. The vital signs have been stable. The patient's condition is stable and appropriate for discharge from the emergency department. The patient will pursue further outpatient evaluation with the primary care physician or other designated or consulting physician as outlined in the discharge instructions. The patient and/or caregivers are agreeable to this plan of care and follow-up instructions have been explained in detail. The patient and/or caregivers have received these instruction. The patient/and or caregivers are aware that any significant change in condition or worsening of symptoms should prompt an immediate return to this or the closest emergency department or call 911. YNES MANZO was seen on 07/31/23 n the Emergency Room. At that time you were treated for an emergent condition, during your visit Laboratory, Radiology and/or other procedures may have been ordered. It is very important that you follow-up with your Primary Care Physician RUSSELL FERNÁNDEZ within the next 24-48 hours to review your Emergency Room visit and the final results of testing that was ordered. Some test results such as Urine Cultures, Blood Cultures, and other cultures if ordered will not be finalized for 24-48 hours. If you do not have a Primary Care Provider please call the medical records department at [phone] ext [phone] to obtain a copy of your results or you may sign into our patient portal to obtain these results by visiting us @ [email or web address] and completing the following steps: 1. Click on the Patient Portal link 2. Click the Patient Self Enrollment Link to complete the enrollment form and entering your 3. Once the enrollment form is completed you will receive an email with a temporary ID and password at the email address you provided. 4. Next choose a user name and password. Your user name must be at least 4 characters long and your password must be at least 4 characters long. 5. Choose a security question from the list and provide your answer to the question. If you already have signed into the Health Portal you may access your Health Care Information 17/05 by the following steps: 1. Login to our website @ [email or web address] 2. Enter your original user name and password. FAQS The [facility] Portal is an online tool that contains your Lab Results, Radiology Reports, Visit History, Discharge Instructions and Health Summary Lab and Radiology Results will not be available for 72 hours on the portal. The Portal is a secure site, passwords are encryted and URLs are re-written so they cannot be copied and pasted. You and authorized family members are the only ones who can access your Portal. Also there is a timeout feature that protects your information if you leave the Portal page open. If you have technical difficulty please use the Contact Us link on the page this will allow you to submit any questions you have regarding the Portal or you may contact the Medical Record Department at [phone] ext [phone].
[2023-07-31 10:17] LABS: HCG URINE TEST NEGATIVE (NEGATIVE)
[2023-07-31 10:24] VITALS: BP 145/80; PULSE 79
--- NOTE | 2023-07-31 19:24 | XRAY ---
Indication: Left chest wall pain following fall. Comparison: None PA/lateral chest inflated and clear. Heart and mediastinal structures within normal limits. Bony thorax intact. Impression: Nonacute chest.
--- NOTE | 2023-07-31 19:26 | XRAY ---
Indication: Pain following fall. Comparison: None KUB nonacute and nonobstructed. Solid organs and osseous structures unremarkable.
== END 2023-07-31 11:25 | disposition home or self-care (01) ==
LOC: ED 09:23
DX: R19.00 Intra-abdominal and pelvic swelling, mass and lump, unspecified site (principal); S20.212A Contusion of left front wall of thorax, initial encounter; W19.XXXA Unspecified fall, initial encounter; R11.10 Vomiting, unspecified; Z79.899 Other long term (current) drug therapy; Z28.310 Unvaccinated for COVID-19; Z72.0 Tobacco use
CPT/HCPCS: 71046; 74018; 81025; 99283

== ENCOUNTER 2024-04-19 16:51 | Emergency (ER) | payer OTHER ==
--- NOTE | 2024-04-19 16:58 | ERPHSYRPT ---
- History of Present Illness Time Seen by Provider: 04/19/24 16:57 Source: patient Exam Limitations: no limitations Physician History: This is an obese 23-year-old white female patient of Dr. Fernández who had a last menstrual period approximately March 10, 2024. On April 10, 2024 patient had a small amount of bleeding present for approximately 1 day then it resolved. On April 14, 2024, the patient took a test at home which was negative. Today, patient is in the emergency department because she states that the amount of blood she passed vaginally had increased and there was "clot shaped like a baby". Patient has no chest pain. Patient has no shortness of breath. Patient vital signs are stable with a systolic blood pressure 119 and heart rate in the 70s and normal sinus rhythm on the monitor. Patient is a daily smoker of cigarettes and does occasionally use marijuana. Timing/Duration: today Activites at Onset: none Quality: cramping (When she had passed blood earlier but none now) Onset Location: abdominal pain (Suprapubic mild cramping earlier with passage of blood but none now) Severity of Pain-Max: mild Severity of Pain-Current: none Prior abdominal problems: none Sexual intercourse history: non-contributory Modifying Factors: Improves With: nothing Associated Symptoms: vaginal discharge (Passage of vaginal clots earlier today) Allergies/Adverse Reactions: peach Allergy (Intermediate, Verified 04/19/24 17:01) Hives lavender (Lavandula angustifolia) Allergy (Verified 04/19/24 17:01) Itching Home Medications: Ferrous Sulfate [Iron] 1 tab PO DAILY 07/31/23 [History] Hx Tetanus, Diphtheria Vaccination/Date Given: Yes Hx Influenza Vaccination/Date Given: No Hx Pneumococcal Vaccination/Date Given: No Travel Risk - International Travel Have you traveled outside of the country in past 3 weeks: No - Emerging Infectious Disease Are you exhibiting symptoms associated with any current EIDs: No - Review of Systems Constitutional: No Symptoms Eyes: No Symptoms Ears, Nose, & Throat: No Symptoms Respiratory: No Symptoms Cardiac: No Symptoms Abdominal/Gastrointestinal: No Symptoms Genitourinary Symptoms: Vaginal Bleeding (Signs of clots earlier today) Musculoskeletal: No Symptoms Skin: No Symptoms Neurological: No Symptoms Psychological: No Symptoms Endocrine: No Symptoms Hematologic/Lymphatic: No Symptoms Immunological/Allergic: No Symptoms All Other Systems: Reviewed and Negative - Past Medical History Pertinent Past Medical History: Yes Neurological History: No Pertinent History ENT History: No Pertinent History Cardiac History: No Pertinent History Respiratory History: No Pertinent History Endocrine Medical History: No Pertinent History Musculoskeletal History: No Pertinent History GI Medical History: No Pertinent History History: No Pertinent History Psycho-Social History: No Pertinent History Female Reproductive Disorders: No Pertinent History Other Medical History: anemia - Past Surgical History Past Surgical History: No Neuro Surgical History: No Pertinent History Cardiac: No Pertinent History Respiratory: No Pertinent History Gastrointestinal: No Pertinent History Genitourinary: No Pertinent History Musculoskeletal: No Pertinent History Female Surgical History: No Pertinent History - Social History Smoking Status: Current every day smoker How long have you smoked: 6 years Exposure to second hand smoke: No Drug Use: marijuana Patient Lives Alone: No - Nursing Vital Signs Nursing Vital Signs: Initial Vital Signs Blood Pressure 132/98 04/19/24 17:01 O2 Sat by Pulse Oximetry 97 04/19/24 17:01 Pain Scale Pain Intensity 0 - Physical Exam General Appearance: no apparent distress, alert, anxiety, obese Eye Exam: PERRL/EOMI, eyes nml inspection Ears, Nose, Throat Exam: normal ENT inspection, moist mucous membranes Neck Exam: normal inspection, non-tender, supple, full range of motion Respiratory Exam: airway intact, No chest tenderness, No respiratory distress Gastrointestinal/Abdomen Exam: soft, normal bowel sounds, No tenderness, No guarding Pelvic Exam: not done Rectal Exam: not done Back Exam: normal inspection, normal range of motion, No CVA tenderness, No vertebral tenderness Extremity Exam: normal inspection, normal range of motion, pelvis stable Neurologic Exam: alert, oriented x 3, cooperative, corn husk baler II-XII nml as tested, nml station & gait, sensation nml Skin Exam: normal color, warm, dry Lymphatic Exam: No adenopathy SpO2 Interpretation: normal O2 Delivery: Room Air - Course Nursing assessment & vital signs reviewed: Yes Ordered Tests: Active Orders 24 hr Category Date Time Status IV Insertion STAT Care 04/19/24 17:20 Active CBC W DIFF Stat Lab 04/19/24 17:48 Completed CMP Stat Lab 04/19/24 17:48 Received HCG QUALITATIVE, SERUM Stat Lab 04/19/24 17:48 Completed HCG, Quantitative (Inhouse) Stat Lab 04/19/24 17:48 Received PROTIME WITH INR Stat Lab 04/19/24 17:48 Completed UA W/RFX UR CULTURE Stat Lab 04/19/24 18:09 Received Lab/Rad Data: Laboratory Result Diagrams 04/19/24 17:48 Laboratory Results 04/19/24 04/19/24 04/19/24 Range/Units 17:48 17:48 17:48 WBC 10.6 H (3.98-10.04) x10^3/uL RBC 5.05 (3.93-5.22) x10^6/uL Hgb 10.9 L (11.2-15.7) g/dL Hct 36.4 (34.1-44.9) % MCV 72.1 L (79.4-94.8) fL MCH 21.6 L (25.6-32.2) pg MCHC 29.9 L (32.2-35.5) g/dL RDW 15.7 H (11.7-14.4) % Plt Count 331 (182-369) x10^3/uL MPV 8.6 L (9.4-12.3) fL Gran % 68.6 (34.0-71.1) % Immature Gran % (Auto) 0.3 (0.001-0.429) % Nucleat RBC Rel Count 0.0 (0.00-0.2) % Eos # (Auto) 0.23 (0.04-0.36) x10^3/uL Immature Gran # (Auto) 0.03 (0.001-0.031) x10^3u/L Absolute Lymphs (auto) 2.41 (1.18-3.74) x10^3/uL Absolute Monos (auto) 0.62 (0.24-0.86) x10^3/uL Absolute Nucleated RBC 0.00 (0.00-0.012) x10^3u/L Lymphocytes % 22.7 (19.3-51.7) % Monocytes % 5.8 (4.7-12.5) % Eosinophils % 2.2 (0.7-5.8) % Basophils % 0.4 (0.1-1.2) % Absolute Granulocytes 7.29 H (1.56-6.13) x10^3/uL Basophils # 0.04 (0.01-0.08) x10^3/uL PT 10.8 (9.4-12.5) SECONDS INR 0.99 (0.8-3.0) Serum HCG, Qual NEGATIVE (NEGATIVE) - Progress Progress: unchanged Air Movement: good Progress Note: 04/19/24 17:40 5 medical decision making and the assignment of moderate complexity to this patient's medical issue today is based on review of the patient's past medical history, review of the patient's medication list, review of patient drug allergy list, history present illness and physical findings on examination. The workup in this patient includes placement of an intravenous line, CBC, CMP, PT/INR, urinalysis, serum qualitative test and serum quantitative test. Differential diagnosis includes but is not limited to urinary tract infection, menstrual period 04/19/24 17:41 I discussed the above workup with the patient and her significant other. Patient currently is declining any IV placement or any drawing of any blood. She is aware that the only thing I can tell her with a urinalysis and urine preg tara test is does the patient have dehydration or infection. We can also tell her whether or not she is currently . Patient states that she is very frightened of any kind of needles and she and her significant other are going to think about it and make the decision and let us know. If she opts not to do the full workup, patient will sign a refusal of testing form. I will try to make arrangements for ultrasound for tomorrow morning, 04/20/2024. Blood Culture(s) Obtained: No Counseled pt/family regarding: lab results, diagnosis, need for follow-up Medical Desision Making - Independent Historian Additional History obtained from: Family - Diagnostic Testing Diagnostic test were ordered, analyzed, and reviewed by me: Yes - Risk of complications Minimal Risk: Minimal risk of morbidity Low Risk: Low risk of morbidity from additional dx testing or treatment - Departure Departure Disposition: Home Clinical Impression: Vaginal bleeding Condition: Stable Critical Care Time: No Referrals: RUSSELL FERNÁNDEZ MD [Primary Care Provider] - Follow up/PCP as directed Additional Instructions: Drink plenty of fluids. Make sure that you drink plenty of fluids beginning at 5 AM tomorrow morning and hold the urine and to make sure you have a full bladder. Arrive at the [facility] radiology department at 9:15 in the morning, tomorrow, 04/20/2024, to undergo the scheduled ultrasound at [id number]
[2024-04-19 17:17] VITALS: TEMP 97; O2SAT 98
[2024-04-19 17:32] VITALS: RESP 19
[2024-04-19 17:55] LABS: Absolute Neutrophil Ct (ANC) 7.29 x10^3/uL (1.56-6.13); BASOPHIL % 0.4 % (0.1-1.2); Basophil (Absolute #) 0.04 x10^3/uL (0.01-0.08); Eosinophil % 2.2 % (0.7-5.8); Eosinophil (Absolute #) 0.23 x10^3/uL (0.04-0.36); Hematocrit 36.4 % (34.1-44.9); Hemoglobin 10.9 g/dL (11.2-15.7); IMMATURE GRAN # 0.03 x10^3u/L (0.001-0.031); IMMATURE GRAN % 0.3 % (0.001-0.429); Lymphocyte (Absolute #) 2.41 x10^3/uL (1.18-3.74); Lymphocytes % 22.7 % (19.3-51.7); Mean Cell Volume 72.1 fL (79.4-94.8); Mean Corpuscular Hemoglobin 21.6 pg (25.6-32.2); Mean Corpuscular Hgb Concent. 29.9 g/dL (32.2-35.5); Mean Platelet Volume 8.6 fL (9.4-12.3); Monocyte (Absolute #) 0.62 x10^3/uL (0.24-0.86); Monocytes % 5.8 % (4.7-12.5); Neutrophil % 68.6 % (34.0-71.1); Platelet Count 331 x10^3/uL (182-369); Red Blood Count 5.05 x10^6/uL (3.93-5.22); Red Cell Distribution Width 15.7 % (11.7-14.4); White Blood Count 10.6 x10^3/uL (3.98-10.04)
[2024-04-19 18:07] LABS: INR 0.99 (0.8-3.0); PROTIME 10.8 SECONDS (9.4-12.5)
[2024-04-19 18:09] VITALS: BP 124/69; PULSE 86
[2024-04-19 18:12] LABS: HCG SERUM TEST NEGATIVE (NEGATIVE)
[2024-04-19 18:24] LABS: Appearance Clear (Clear); Bacteria None Seen /HPF (None Seen); Bilirubin Negative (Negative); Blood Negative (Negative); Epithelial Cells None Seen /HPF (None Seen); Glucose, Urine Negative (Negative); Hyaline Casts NONE SEEN /LPF (0-2); Ketones Negative (Negative); Leukocyte Esterase Negative (Negative); Nitrite Negative (Negative); Protein,Urine Dip Negative (Negative); RBC 0-2 /HPF (0-5); Urobilinogen 0.2 mg/dL (0.2); WBC 0-2 /HPF (0-5)
[2024-04-19 18:27] LABS: ADD URINE CULTURE? NO (NO)
[2024-04-19 18:27] LABS: ALBUMIN 4.2 g/dL (3.5-5.0); ALKALINE PHOSPHATASE 65 U/L (38-126); ANION GAP 12.9 MEQ/L (5-15); BLOOD UREA NITROGEN 7 mg/dL (7-17); CHLORIDE 106 mmol/L (98-107); Calcium 9.7 mg/dL (8.4-10.2); Carbon Dioxide 25 mmol/L (22-30); Creatinine 1 0.51 mg/dL (0.52-1.04); EST GLOMERULAR FILTRATION RATE 132.8 ML/MIN; Glucose 185 mg/dL (74-106); HCG, Quantitative (Inhouse) < 2.39 mIU/ml; Potassium 3.9 mmol/L (3.5-5.1); SGOT/AST 25 U/L (14-36); SGPT/ALT 26 U/L (0-35); SODIUM 139 mmol/L (135-145); Total Protein 7.8 g/dL (6.3-8.2)
== END 2024-04-19 18:50 | disposition home or self-care (01) ==
LOC: ED 16:51
DX: N93.9 Abnormal uterine and vaginal bleeding, unspecified (principal); Z72.0 Tobacco use
CPT/HCPCS: 36415; 80053; 81001; 84702; 84703; 85025; 85610; 99282